=== PATIENT | male | born 1990 | race Hispanic/Latino ===

== ENCOUNTER 2021-05-15 10:06 | Emergency (ER) | payer OTHER ==
[~2021-05-15] VITALS: Ht 180.3 cm; Wt 83.9 kg
[2021-05-15 10:16] VITALS: BP 113/73
[2021-05-15] MEDS ORDERED: OCTYL 2-CYANOACRYLATE 1 EACH TP ONE (11:27)
== END 2021-05-15 11:45 | disposition home or self-care (01) ==
LOC: EDH 10:22
DX: S01.81XA Laceration without foreign body of other part of head, initial encounter (principal); X58.XXXA Exposure to other specified factors, initial encounter; Y93.89 Activity, other specified; Y92.89 Other specified places as the place of occurrence of the external cause; Y99.8 Other external cause status
CPT/HCPCS: 12013; 99282